=== PATIENT | female | born 1995 | race African-American/Black ===

== ENCOUNTER 2016-06-25 12:26 | Emergency (ER) | payer BC, OTHER ==
[~2016-06-25] VITALS: Ht 165.1 cm; Wt 68.0 kg
[~2016-06-25 12:26] MED LIST: AMOXICILLIN500 M1 PO; BACTRIM DS TAB1 EACH PO; CLARITIN10 MG PO; COLACE 100 MG100 MG; DOXYCYCLINE 10100 MG PO; FLONASE 0.05%50 MCG NASAL; IBUPROFEN 600600 M1; IBUPROFEN 800800 MG PO; KEFLEX500 MG PO; LANOLIN56 GM; LEVSIN0.125 MG PO; LOMOTIL TABLET1 EACH PO; NAPROSYN500 MG PO; NOHOMEMEDICATIONS; NORCO 5-325 TA1 EACH; NORCO 5-325 TA1 EACH PO; PERCOCET 5-3251 EACH PO; PREDNISONE 20 M20 M1 PO; PREDNISONE 20 M20 MG PO; PRENATAL MULTI1 EAC2; PRILOSEC 20 MG20 MG PO; TRAMADOL 50 MG50 MG PO; ULTRAM 50MG TAB50 MG PO; ZOFRAN4 MG PO
[2016-06-25 12:43] LABS: URINE BILIRUBIN NEGATIVE (Negative); URINE BLOOD NEGATIVE (Negative); URINE COLOR YELLOW; URINE GLUCOSE-RANDOM* NEGATIVE (Negative); URINE KETONES 3+ (Negative); URINE NITRITE NEGATIVE (Negative); URINE PROTEIN (DIPSTICK) NEGATIVE (Negative); URINE SPECIFIC GRAVITY 1.015 (1.003-1.035)
[2016-06-25 13:23] LABS: ABSOLUTE NEUTROPHILS 2.8 thou/uL (1.4-8.2); BASOPHILS 0.3 % (0.0-2.0); EOSINOPHILS 1.1 % (0.0-3.0); HEMATOCRIT 41.3 % (37.0-47.0); HEMOGLOBIN 14.4 gm/dL (12.0-15.0); LYMPHOCYTES 26.6 % (24.0-44.0); MCHC 34.8 % (28.0-37.0); MCV 92.1 fL (80.0-100.0); MONOCYTES 8.8 % (1.0-8.0); PLATELET COUNT 151 thou/uL (150-400); POLYS 63.2 % (36.0-66.0); RBC 4.49 mil/uL (4.20-5.00); RDW 12.8 % (10.5-14.5); WBC 4.5 thou/uL (4.0-11.0)
[2016-06-25 13:24] LABS: MANUAL DIFF NO
[2016-06-25 13:31] LABS: CALCIUM 9.1 mg/dL (8.5-10.1); CREATININE 0.8 mg/dL (0.6-1.3); POTASSIUM 3.3 mmol/L (3.5-5.1)
[2016-06-25 13:37] LABS: ALBUMIN 3.8 g/dL (3.4-5.0); TOTAL BILIRUBIN 1.1 mg/dL (<0.1-1.0); TOTAL PROTEIN 7.8 g/dL (6.4-8.2)
[2016-06-25] MEDS ORDERED: CARAFATE1 GM PO (15:18)
[2016-06-25] MEDS ORDERED: PEPCID20 MG PO (15:18)
[2016-06-25 15:40] VITALS: BP 109/56
== END 2016-06-25 15:40 ==
LOC: ER 12:26
PROVIDERS: Physician Assistant
DX: R10.13 Epigastric pain (principal); R11.2 Nausea with vomiting, unspecified; R19.7 Diarrhea, unspecified; Z88.5 Allergy status to narcotic agent

== ENCOUNTER → 2016-07-02 | Outpatient (CLI) | payer BC, OTHER ==
[~2016-07-02] MED LIST changes: +CARAFATE1 GM PO; +PEPCID20 MG PO
== END ==
LOC: RAD 11:08
DX: R10.9 Unspecified abdominal pain (principal)

== ENCOUNTER 2016-11-07 12:38 | Emergency (ER) | payer BC, OTHER ==
[~2016-11-07] VITALS: Ht 165.1 cm; Wt 72.6 kg
[2016-11-07 12:50] LABS: URINE BILIRUBIN NEGATIVE (Negative); URINE BLOOD TRACE (Negative); URINE COLOR YELLOW; URINE GLUCOSE-RANDOM* NEGATIVE (Negative); URINE KETONES NEGATIVE (Negative); URINE NITRITE NEGATIVE (Negative); URINE PROTEIN (DIPSTICK) 3+ (Negative); URINE SPECIFIC GRAVITY 1.025 (1.003-1.035)
[2016-11-07 12:56] LABS: CASTS None Seen /LPF (None Seen); SQUAMOUS >10 Many /LPF (0-3); URINE WBC 6-15 Few /HPF (0-5)
[2016-11-07 12:57] LABS: BACTERIA 1-9 Few /HPF (None Seen); CRYSTALS None Seen /LPF (None Seen); URINE RBC None Seen /HPF (0-2)
[2016-11-07] MEDS ORDERED: OMEPRAZOLE 20 M20 M1 PO (13:36)
[2016-11-07 13:49] LABS: HEMATOCRIT 42.2 % (37.0-47.0); HEMOGLOBIN 14.7 gm/dL (12.0-15.0); MCHC 34.7 g/dL (28.0-37.0); MCV 94.9 fL (80.0-100.0); RBC 4.44 mil/uL (4.20-5.00); RDW 12.6 % (10.5-14.5); WBC 5.5 thou/uL (4.0-11.0)
[2016-11-07 13:57] LABS: CALCIUM 9.4 mg/dL (8.5-10.1); CREATININE 0.8 mg/dL (0.6-1.0); POTASSIUM 3.5 mmol/L (3.5-5.1)
[2016-11-07 14:01] LABS: TOTAL BILIRUBIN 0.8 mg/dL (<0.1-1.0); TOTAL PROTEIN 8.1 g/dL (6.4-8.2)
[2016-11-07 14:30] VITALS: BP 115/66
[2016-11-07] MEDS ORDERED: PHENERGAN 25 MG25 M1 PO (14:34)
[2016-11-07] MEDS ORDERED: MIRALAX17 GM PO (14:34)
[2016-11-07] MEDS ORDERED: NORCO 5-325 TA1 EACH PO (14:35)
== END 2016-11-07 14:39 | disposition home or self-care (01) ==
LOC: ER 12:38
PROVIDERS: Physician Assistant
DX: N83.202 Unspecified ovarian cyst, left side (principal); D57.3 Sickle-cell trait; Z88.5 Allergy status to narcotic agent

== ENCOUNTER 2016-12-20 15:25 | Emergency (ER) | payer BC, OTHER ==
[~2016-12-20] VITALS: Ht 165.1 cm; Wt 72.6 kg
[~2016-12-20 15:25] MED LIST changes: +MIRALAX17 GM PO; +OMEPRAZOLE 20 M20 M1 PO; +PHENERGAN 25 MG25 M1 PO
[2016-12-20] MEDS ORDERED: NORFLEX100 MG PO (17:31)
[2016-12-20] MEDS ORDERED: NAPROSYN500 MG PO (17:31)
[2016-12-20 17:38] VITALS: BP 130/79
[2016-12-20] MEDS ORDERED: AZITHROMYCIN 2250 MG PO (17:39)
[2016-12-20] MEDS ORDERED: PREDNISONE 20 M20 MG PO (17:39)
[2016-12-20] MEDS ORDERED: VENTOLIN HFA 1818 GM INH (17:40)
[2016-12-20] MEDS ORDERED: HYDROCODONE-AP1 EAC6 PO (17:46)
== END 2016-12-20 17:58 | disposition home or self-care (01) ==
LOC: ER 15:25
DX: S46.911A Strain of unspecified muscle, fascia and tendon at shoulder and upper arm level, right arm, initial encounter (principal); R07.89 Other chest pain; J18.9 Pneumonia, unspecified organism; Z88.5 Allergy status to narcotic agent; X58.XXXA Exposure to other specified factors, initial encounter; Y93.89 Activity, other specified; Y92.89 Other specified places as the place of occurrence of the external cause; Y99.8 Other external cause status

== ENCOUNTER → 2017-01-31 | Outpatient (CLI) | payer BC, OTHER ==
[~2017-01-31] MED LIST changes: +AZITHROMYCIN 2250 MG PO; +HYDROCODONE-AP1 EAC6 PO; +NORFLEX100 MG PO; +VENTOLIN HFA 1818 GM INH
== END ==
LOC: CAT 11:06
DX: R10.11 Right upper quadrant pain (principal); R10.32 Left lower quadrant pain

== ENCOUNTER 2017-03-24 14:28 | Emergency (ER) | payer BC, OTHER ==
[~2017-03-24] VITALS: Ht 162.6 cm; Wt 70.3 kg
--- NOTE | ~2017-03-24 | EKG ---
[address] [address] ELECTROCARDIOGRAM REPORT Name: GARFIELD BALLESTEROS Room #: DEP [facility]#: [id number] Admission: 03/24/17 Attend Phys: Discharge: 03/24/17 Date of : [birth year] Report #: [id number] THIS REPORT FOR: //name// [facility] ED Test Date: 2017-03-24 Test Time: 15:10:11 Pat Name: GARFIELD BALLESTEROS Department: Room: Gender: F Photography Assistant: : 1995 Requested By: Nakul Stanley Order Number: [id number] MD: Bladimir Garrido Measurements Intervals [place] Rate: 62 P: 28 TX: 156 QRS: 52 QRSD: 77 T: 39 QT: 397 QTc: 404 Interpretive Statements Sinus rhythm Compared to ECG 03/07/2014 20:37:14 T-wave abnormality no longer present Electronically Signed On 03-24-2017 22:45:52 CDT by Bladimir Garrido [email or web address] <ELECTRONICALLY SIGNED> By: Bladimir Garrido MD 03/24/17 2245 1510 1510 Bladimir Garrido MD /JOSE
[2017-03-24 14:56] LABS: URINE BILIRUBIN NEGATIVE (Negative); URINE BLOOD NEGATIVE (Negative); URINE COLOR YELLOW; URINE GLUCOSE-RANDOM* NEGATIVE (Negative); URINE KETONES NEGATIVE (Negative); URINE LEUKOCYTES-REFLEX NEGATIVE (Negative); URINE PROTEIN (DIPSTICK) NEGATIVE (Negative); URINE UROBILINOGEN 0.2 E.U./dl (0.2-1.0)
[2017-03-24 14:59] LABS: ABSOLUTE NEUTROPHILS 4.8 thou/uL (1.4-8.2); BASOPHILS 0.6 % (0.0-2.0); EOSINOPHILS 0.7 % (0.0-3.0); HEMOGLOBIN 14.5 gm/dL (12.0-15.0); LYMPHOCYTES 30.3 % (24.0-44.0); MCH 33.1 pg (26.0-34.0); MCHC 34.6 g/dL (28.0-37.0); MCV 95.6 fL (80.0-100.0); MONOCYTES 6.4 % (1.0-8.0); PLATELET COUNT 164 thou/uL (150-400); WBC 7.8 thou/uL (4.0-11.0)
[2017-03-24 15:04] LABS: MANUAL DIFF NO
[2017-03-24 15:07] LABS: CALCIUM 9.2 mg/dL (8.5-10.1); CREATININE 0.7 mg/dL (0.6-1.0); POTASSIUM 3.6 mmol/L (3.5-5.1)
[2017-03-24 15:13] LABS: ALBUMIN 4.1 g/dL (3.4-5.0); TOTAL BILIRUBIN 0.6 mg/dL (<0.1-1.0); TOTAL PROTEIN 7.8 g/dL (6.4-8.2)
[2017-03-24] MEDS ORDERED: OMEPRAZOLE40 MG PO (15:25)
[2017-03-24] MEDS ORDERED: FLAGYL500 MG PO (16:45)
[2017-03-24] MEDS ORDERED: ZOFRAN ODT4 M1 PO (16:47)
[2017-03-24] MEDS ORDERED: SENNA8.6 MG PO (16:50)
[2017-03-24 17:08] VITALS: BP 119/63
[2017-03-25 20:10] LABS: CHLAMYDIA TRACHOMATIS-PCR Negative (Negative); NEISSERIA GONORRHEA-PCR Negative (Negative)
== END 2017-03-24 17:10 | disposition home or self-care (01) ==
LOC: ER 14:28
PROVIDERS: Physician Assistant
DX: R10.13 Epigastric pain (principal); N76.0 Acute vaginitis; B96.89 Other specified bacterial agents as the cause of diseases classified elsewhere; R11.0 Nausea; D57.3 Sickle-cell trait; Z88.5 Allergy status to narcotic agent

== ENCOUNTER → 2017-08-04 | Outpatient (CLI) | payer BC, OTHER ==
[~2017-08-04] MED LIST changes: +FLAGYL500 MG PO; +MOBIC15 MG PO; +OMEPRAZOLE40 MG PO; +SENNA8.6 MG PO; +ZOFRAN ODT4 M1 PO
== END ==
LOC: CAT 07:07
DX: N85.4 Malposition of uterus (principal); R93.8 Abnormal findings on diagnostic imaging of other specified body structures; N83.201 Unspecified ovarian cyst, right side

== ENCOUNTER → 2017-08-08 | Outpatient (CLI) | payer BC, OTHER | LOC: ULTRA 11:24 | DX: N92.6 Irregular menstruation, unspecified (principal); N93.8 Other specified abnormal uterine and vaginal bleeding ==

== ENCOUNTER 2017-08-23 15:14 | Emergency (ER) | payer OTHER ==
[~2017-08-23] VITALS: Ht 165.1 cm; Wt 65.3 kg
[~2017-08-23 15:14] MED LIST changes: -MOBIC15 MG PO
[2017-08-23] MEDS ORDERED: MOBIC15 MG PO (15:40)
[2017-08-23] MEDS ORDERED: HYDROCODONE-AP1 EAC6 PO (15:40)
== END 2017-08-23 16:01 | disposition home or self-care (01) ==
LOC: ER 15:14
DX: S16.1XXA Strain of muscle, fascia and tendon at neck level, initial encounter (principal); S09.90XA Unspecified injury of head, initial encounter; F10.99 Alcohol use, unspecified with unspecified alcohol-induced disorder; Z88.6 Allergy status to analgesic agent; V89.2XXA Person injured in unspecified motor-vehicle accident, traffic, initial encounter; Y93.89 Activity, other specified; Y92.89 Other specified places as the place of occurrence of the external cause; Y99.8 Other external cause status

== ENCOUNTER 2019-12-10 07:23 | Emergency (ER) | payer OTHER ==
[~2019-12-10] VITALS: Ht 162.6 cm; Wt 60.8 kg
[~2019-12-10 07:23] MED LIST changes: +MOBIC15 MG PO
[2019-12-10 07:53] LABS: URINE BILIRUBIN NEGATIVE (Negative); URINE BLOOD TRACE (Negative); URINE CLARITY SL CLOUDY; URINE COLOR YELLOW; URINE GLUCOSE-RANDOM* NEGATIVE (Negative); URINE KETONES NEGATIVE (Negative); URINE LEUKOCYTES-REFLEX 3+ (Negative); URINE NITRITE-REFLEX NEGATIVE (Negative); URINE PROTEIN (DIPSTICK) NEGATIVE (Negative)
[2019-12-10 08:38] LABS: BACTERIA-REFLEX >30 Many /HPF (None Seen); CASTS None Seen /LPF (None Seen); CRYSTALS None Seen /LPF (None Seen); SQUAMOUS 0-3 Few /LPF (0-3); URINE WBC-REFLEX >25 Many /HPF (0-5)
[2019-12-10 08:39] LABS: URINE RBC 3-10 Few /HPF (0-2)
[2019-12-10] MEDS ORDERED: KEFLEX500 M1 PO (09:00)
[2019-12-10] MEDS ORDERED: FLAGYL500 M1 PO (09:00)
[2019-12-10 09:01] VITALS: BP 132/72
== END 2019-12-10 09:01 | disposition home or self-care (01) ==
LOC: ER 07:23
PROVIDERS: Emergency Medicine
DX: N76.0 Acute vaginitis (principal); B96.89 Other specified bacterial agents as the cause of diseases classified elsewhere; N39.0 Urinary tract infection, site not specified; F12.90 Cannabis use, unspecified, uncomplicated; Z88.5 Allergy status to narcotic agent; Z79.899 Other long term (current) drug therapy; Z98.890 Other specified postprocedural states

== ENCOUNTER → 2020-01-05 | Emergency (ER) | payer OTHER ==
[~2020-01-05] VITALS: Ht 162.6 cm; Wt 63.5 kg
[~2020-01-05] MED LIST changes: +FLAGYL500 M1 PO; +KEFLEX500 M1 PO
[2020-01-05 19:31] VITALS: BP 145/86
== END ==
LOC: ER 19:10
DX: M79.671 Pain in right foot (principal); R51 Headache; Z53.21 Procedure and treatment not carried out due to patient leaving prior to being seen by health care provider; W10.8XXA Fall (on) (from) other stairs and steps, initial encounter; Y93.89 Activity, other specified; Y92.89 Other specified places as the place of occurrence of the external cause; Y99.9 Unspecified external cause status

== ENCOUNTER 2020-11-06 20:13 | Emergency (ER) | payer OTHER ==
[~2020-11-06] VITALS: Ht 162.6 cm; Wt 64.9 kg
[2020-11-06 20:51] LABS: URINE BILIRUBIN NEGATIVE (Negative); URINE BLOOD NEGATIVE (Negative); URINE CLARITY CLEAR; URINE COLOR YELLOW; URINE GLUCOSE-RANDOM* NEGATIVE (Negative); URINE KETONES NEGATIVE (Negative); URINE LEUKOCYTES-REFLEX NEGATIVE (Negative); URINE NITRITE-REFLEX NEGATIVE (Negative); URINE PROTEIN (DIPSTICK) 1+ (Negative)
[2020-11-06 21:03] LABS: MUCUS 0-3 Light strn/LPF (None Seen); SQUAMOUS >10 Many /LPF (0-3)
[2020-11-06 21:04] LABS: CASTS None Seen /LPF (None Seen); CRYSTALS None Seen /LPF (None Seen); URINE RBC 1-2 Rare /HPF (NONE SEEN); URINE WBC-REFLEX 0-5 Rare /HPF (0-5)
[2020-11-06 21:05] LABS: BACTERIA-REFLEX 1-9 Few /HPF (None Seen)
[2020-11-06] MEDS ORDERED: MEDROLDOSEPACK PO (21:19)
[2020-11-06] MEDS ORDERED: AUGMENTIN 875-1 EACH PO (21:19)
[2020-11-06] MEDS ORDERED: PROMETH-CODEIN 65 ML PO (21:19)
[2020-11-06 21:58] VITALS: BP 112/57
== END 2020-11-06 21:59 | disposition home or self-care (01) ==
LOC: ER 20:13
PROVIDERS: Nurse Practitioner Family
DX: J32.1 Chronic frontal sinusitis (principal); J32.0 Chronic maxillary sinusitis; Z98.890 Other specified postprocedural states; Z79.2 Long term (current) use of antibiotics; Z79.899 Other long term (current) drug therapy; Z88.6 Allergy status to analgesic agent